=== PATIENT | female | born 1985 | race Caucasian/White ===

== ENCOUNTER 2021-06-11 22:00 | Inpatient (IN) ==
[2021-06-11] MEDS ORDERED: Lactated Ringers 1000 ml BAG 1,000 ML IV ONE (23:13)
[2021-06-11] MEDS ORDERED: Buffered Lidocaine 1% SYRIN 1 ml INTRADERM ONE (23:13)
[2021-06-12] MEDS ORDERED: Oxytocin 10 UNITS/ML 1 ML VIAL IM ONE (00:49)
[2021-06-12] MEDS ORDERED: Witch Hazel PAD JAR TOPICAL PRN (02:35)
[2021-06-12] MEDS ORDERED: Dibucaine 1% OINT 28.35 GM TUBE PR PRN (02:35)
[2021-06-12] MEDS ORDERED: Lactated Ringers 1000 ml BAG 1,000 ML IV SCH (03:00)
[2021-06-12 09:20] LABS: Urine Benzodiazepine Screen None Detected (None Detect); Urine Cannabinoids Screen None Detected (None Detect); Urine Opiates Screen None Detected (None Detect)
[2021-06-12 09:27] LABS: Rapid COVID-19 Molecular Undetected (Undetected)
[2021-06-13 07:24] LABS: ABS Basophils 0.1 10^3/ul (0-0.2); ABS Eosinophils 0.2 10^3/ul (0-0.6); ABS Neutrophils 7.1 10^3/ul (1.5-7.7); Hematocrit 39 % (35-47); Hemoglobin 13.6 g/dL (12.0-16.0); Lymphocyte % 26.1 %; Mean Corpuscular HGB Conc 35 g/dL (31-36); Mean Corpuscular Hemoglobin 32 pg (27-31); Mean Corpuscular Volume 94 fL (80-97); Platelet Count 152 10^3/uL (150-450); Red Blood Count 4.21 10^6 /uL (3.70-4.87); Red Cell Distribution Width 14 % (10-15); White Blood Count 11.4 10^3/uL (3.5-10.8)
[2021-06-13 07:44] VITALS: BP 111/63
== END 2021-06-13 14:37 | disposition home or self-care (01) | DRG 807 ==
LOC: MCHOBOUT 22:00 → MCHOB 23:22
PROVIDERS: ADMIT Advanced Practice Midwife; ATTEND Advanced Practice Midwife